=== PATIENT | female | born 1960 | race Caucasian/White ===

== ENCOUNTER 2023-07-24 10:52 | Emergency (ER) | payer BC, OTHER ==
[~2023-07-24] VITALS: Ht 160 cm; Wt 104.5 kg
[2023-07-24 12:04] VITALS: BP 126/95; PULSE 71; RESP 18; TEMP 98.7; O2SAT 97
--- NOTE | 2023-07-24 14:03 | NUR ---
PAGED VASCULAR FOR STUDY.
--- NOTE | 2023-07-24 14:30 | NUR ---
[employer] MACHINE WORKER AT BEDSIDE.
[2023-07-24] MEDS ORDERED: SULF1TAB49 PO (15:35)
[2023-07-24] MEDS ORDERED: CEPH-585 PO (15:35)
== END 2023-07-24 15:40 | disposition home or self-care (01) ==
LOC: ER 10:52
DX: L03.115 Cellulitis of right lower limb (principal); L02.415 Cutaneous abscess of right lower limb; M79.604 Pain in right leg; R22.41 Localized swelling, mass and lump, right lower limb; Z88.0 Allergy status to penicillin; Z88.8 Allergy status to other drugs, medicaments and biological substances; Z79.2 Long term (current) use of antibiotics
CPT/HCPCS: 93971; 99284